=== PATIENT | male | born 1990 | race Caucasian/White ===

== ENCOUNTER 2017-07-23 15:36 | Emergency (ER) | payer SELFPAY ==
[~2017-07-23] VITALS: Ht 170.2 cm; Wt 78.0 kg
[2017-07-23 15:39] VITALS: Ht 170.2 cm; Wt 78.0 kg
== END 2017-07-23 22:08 | disposition left against medical advice (07) ==
LOC: FTE 15:36
DX: Z53.21 Procedure and treatment not carried out due to patient leaving prior to being seen by health care provider (principal)